=== PATIENT | female | born 2000 | race Hispanic/Latino ===

== ENCOUNTER 2021-10-09 14:44 | Outpatient (CLI) | payer OTHER ==
[2021-10-10 16:11] LABS: SARS-CoV-2 PCR by NAA Not Detected (NotDetected)
== END 2021-10-09 14:45 | disposition home or self-care (01) ==
LOC: CSHLAB 14:44
PROVIDERS: ATTEND Family Medicine
DX: Z20.822 Contact with and (suspected) exposure to COVID-19 (principal)
CPT/HCPCS: U0003; U0005

== ENCOUNTER 2023-07-25 05:37 | Inpatient (IN) | payer OTHER ==
[2023-07-22 11:15] LABS: Hematocrit 35.6 % (34.9-44.5); Hemoglobin 11.6 g/dL (12.0-15.5); Platelet Count 276 10x3/uL (150-450)
[2023-07-22 11:48] LABS: HBSAg Index 0.28 S/CO (0-0.99); Hep B Surf Ag Non-Reactive S/CO (NonReactive)
[2023-07-22 11:49] LABS: Syphilis Antibody Nonreactive (Nonreactive); Syphilis Antibody Index 0.07 S/CO (<1.00 Non-Reactive)
[2023-07-25 05:47] VITALS: BMI 28.3
[2023-07-25] MEDS ORDERED: Misoprostol 200 MCG TAB PR PRN (05:48)
[2023-07-25] MEDS ORDERED: Tranexamic Acid 1,000 MG/10 ML VIAL IVP PRN (05:48)
[2023-07-25] MEDS ORDERED: Carboprost 250 MCG/ML AMP IM PRN (05:48)
[2023-07-25] MEDS ORDERED: Methylergonovine 0.2 MG/ML VIAL IM PRN (05:48)
[2023-07-25] MEDS ORDERED: hydrALAZINE 20 MG/ML VIAL SLOW IVP PRN ×2 (05:48→12:00)
[2023-07-25] MEDS ORDERED: Famotidine/PF 20 mg/2ml Vial SLOW IVP PRN (05:48)
[2023-07-25] MEDS ORDERED: Promethazine HCl 25 MG/ML VIAL IM PRN ×4 (05:48→17:33)
[2023-07-25] MEDS ORDERED: Ondansetron PF 4 MG/2 ML Vial IVP PRN ×5 (05:48→17:33)
[2023-07-25] MEDS ORDERED: Diphenoxylate HCl/Atropine Tablet PO PRN (05:48)
[2023-07-25] MEDS ORDERED: Bicitra 30 ML UDCUP PO PRN (05:48)
[2023-07-25] MEDS ORDERED: CEFAZOLIN 2 GM in Sodium Chloride 0.9% 100 ML IVPB SCH (06:00)
[2023-07-25] MEDS ORDERED: Oxytocin 30 units/NS 500 ML 500 ML IV SCH (06:00)
[2023-07-25] MEDS ORDERED: Lactated Ringer's 1,000 ML IV SCH (06:00)
[2023-07-25] MEDS ORDERED: fentaNYL 50 mcg/mL 1 mL Vial ONE (07:38)
[2023-07-25] MEDS ORDERED: Morphine PF 10 MG/10 ML VIAL ONE (07:38)
[2023-07-25] MEDS ORDERED: Dexamethasone 4 mg/ml Vial ONE (07:55)
[2023-07-25] MEDS ORDERED: Ondansetron PF 4 MG/2 ML Vial ONE (07:55)
[2023-07-25] MEDS ORDERED: Oxytocin 10 UNITS/ML VIAL ONE ×2 (07:56→08:34)
[2023-07-25] MEDS ORDERED: PHENYLEPHRINE-NS 100 MCG/ML 10 ML SYRINGE ONE (08:14)
[2023-07-25] MEDS ORDERED: Phytonadione Neonatal 1 MG/0.5 ML AMP ONE (08:15)
[2023-07-25] MEDS ORDERED: Hepatitis B Vaccine 10 MCG/0.5 ML SYR ONE (08:15)
[2023-07-25] MEDS ORDERED: Erythromycin Base 0.5% Oint 1 GM TUBE ONE (08:15)
[2023-07-25] MEDS ORDERED: Promethazine HCl 25 MG SUPP PR PRN (08:46)
[2023-07-25] MEDS ORDERED: Ketorolac Tromethamine 30 MG (1 mL) VIAL IVP PRN (08:46)
[2023-07-25] MEDS ORDERED: fentaNYL 50 mcg/mL 1 mL Vial SLOW IVP PRN (08:46)
[2023-07-25] MEDS ORDERED: Meperidine HCl/PF 25 MG (1 mL) VIAL SLOW IVP PRN (08:46)
[2023-07-25] MEDS ORDERED: Moisturizing Cream (Eucerin) 113 GM JAR TOP PRN (08:46)
[2023-07-25] MEDS ORDERED: HYDROmorphone 0.5 MG/0.5 ML SYRINGE SLOW IVP PRN (08:46)
[2023-07-25] MEDS ORDERED: Naloxone HCl 0.4 mg/ml Vial IV PRN ×2 (08:46→17:33)
[2023-07-25] MEDS ORDERED: Naloxone HCl 0.4 mg/ml Vial IVP PRN ×2 (08:46)
[2023-07-25] MEDS ORDERED: diphenhydrAMINE 50 MG/ML VIAL IVP PRN ×2 (08:46→17:33)
[2023-07-25] MEDS ORDERED: Communication Order-Pharmacy FS SCH ×2 (09:00→17:45)
[2023-07-25] MEDS ORDERED: Ketorolac Tromethamine 30 MG (1 mL) VIAL IVP SCH (09:00)
[2023-07-25] MEDS ORDERED: Boostrix 0.5 ML (Tdap) VIAL (>/=7 yrs of age) IM ONE (12:00)
[2023-07-25] MEDS ORDERED: Bisacodyl 10 MG SUPP PR PRN (12:00)
[2023-07-25] MEDS ORDERED: diphenhydrAMINE 25 MG CAP PO PRN ×2 (12:00→17:33)
[2023-07-25] MEDS ORDERED: Docusate 100 MG CAP PO SCH (13:00)
[2023-07-25] MEDS ORDERED: Prenatal Vitamin 1 TAB PO SCH (13:00)
[2023-07-25] MEDS ORDERED: Ferrous Sulfate 325 MG TAB PO SCH (13:00)
[2023-07-25] MEDS: Ketorolac Tromethamine 30 MG (1 mL) VIAL IVP SCH ×2 (13:01→20:43)
[2023-07-25] MEDS ORDERED: FENTANYL 500 MCG/10 ML VIAL 1,000 MCG in Sodium Chloride 0.9% 30 ML IV PRN (17:33)
[2023-07-25] MEDS ORDERED: diphenhydrAMINE 50 MG/ML VIAL IM PRN (17:33)
[2023-07-25] MEDS: Docusate 100 MG CAP PO SCH (20:42)
[2023-07-25] MEDS ORDERED: Meperidine HCl/PF 25 MG (1 mL) VIAL IM PRN (21:00)
[2023-07-25] MEDS ORDERED: HYDROcodone/Acetaminophen 5/325 mg Tablet PO PRN ×2 (21:00)
[2023-07-26] MEDS: Ferrous Sulfate 325 MG TAB PO SCH ×3 (01:42→20:33)
[2023-07-26] MEDS: Ketorolac Tromethamine 30 MG (1 mL) VIAL IVP SCH ×2 (03:34→08:23)
[2023-07-26 04:27] LABS: Hematocrit 29.5 % (34.9-44.5); Hemoglobin 9.8 g/dL (12.0-15.5); Mean Corpuscular HGB CONC 33.2 g/dL (32.0-36.0); Mean Corpuscular Volume 87.3 fl (81.6-98.3); Mean Platelet Volume 11.9 fl (7.4-10.4); Platelet Count 240 10x3/uL (150-450); RBC Distribution Width 14.5 % (11.5-14.5); Red Blood Cell (RBC) Count 3.38 10x6/uL (3.90-5.03); White Blood Cell (WBC) Count 8.8 10x3/uL (3.5-10.5)
[2023-07-26] MEDS: Prenatal Vitamin 1 TAB PO SCH (08:23)
[2023-07-26] MEDS: Docusate 100 MG CAP PO SCH ×2 (08:23→20:33)
[2023-07-26] MEDS: HYDROcodone/Acetaminophen 5/325 mg Tablet PO PRN ×3 (11:25→20:34)
[2023-07-26] MEDS: Ibuprofen 800 MG TAB PO SCH ×2 (13:43→22:11)
[2023-07-26] MEDS: Simethicone Chewable 80 MG TAB PO PRN ×3 (13:47→22:12)
[2023-07-27] MEDS: Simethicone Chewable 80 MG TAB PO PRN (03:39)
[2023-07-27] MEDS: HYDROcodone/Acetaminophen 5/325 mg Tablet PO PRN ×4 (03:39→22:26)
[2023-07-27] MEDS: Ibuprofen 800 MG TAB PO SCH ×3 (05:39→22:23)
[2023-07-27] MEDS: Prenatal Vitamin 1 TAB PO SCH (08:22)
[2023-07-27] MEDS: Ferrous Sulfate 325 MG TAB PO SCH ×2 (08:22→22:23)
[2023-07-27] MEDS: Docusate 100 MG CAP PO SCH ×2 (08:22→22:23)
[2023-07-28] MEDS: Ibuprofen 800 MG TAB PO SCH (06:02)
[2023-07-28 08:11] VITALS: BP 137/83; TEMP 98.4
[2023-07-28] MEDS: Docusate 100 MG CAP PO SCH (08:11)
[2023-07-28] MEDS: Prenatal Vitamin 1 TAB PO SCH (08:11)
[2023-07-28] MEDS: Ferrous Sulfate 325 MG TAB PO SCH (08:11)
== END 2023-07-28 11:50 | disposition home or self-care (01) | DRG 788 ==
LOC: CSHLD 05:37 → CSHPP 10:50
PROVIDERS: ADMIT Family Medicine; ATTEND Family Medicine
PROC: 10D00Z1 Extraction of Products of Conception, Low, Open Approach (ICD-10-PCS; principal; 2023-07-25)
DX: O34.211 Maternal care for low transverse scar from previous cesarean delivery (principal); Z3A.39 39 weeks gestation of pregnancy; Z37.0 Single live birth
CPT/HCPCS: 36415; 51702; 85014; 85018; 85027; 85049; 86780; 86850; 86900; 86901; 87340; J1100; J1200; J1885; J2274; J2405; J2590; J3010; J3490; J7120; S0028